=== PATIENT | female | born 1975 | race Caucasian/White ===

== ENCOUNTER 2016-12-16 09:25 | Emergency (ER) | payer MEDICAID ==
[~2016-12-16] VITALS: Ht 154.9 cm; Wt 73.5 kg
[2016-12-16 09:35] VITALS: BP 133/78
--- NOTE | 2016-12-16 09:46 | NUR ---
Patient ambulated to bed 07.
--- NOTE | 2016-12-16 09:50 | NUR ---
PATIENT PRESENTS TO ED WITH C/O LEFT BACK PAIN; LOW MID ABD PAIN; BURNING ON URINATION HX; DENIES RX; DENIES DENIES N/V/D; SKIN IS PINK/WARM/DRY; AAOX4 WITH EVEN AND STEADY GAIT; LUNGS CLEAR BL; HR EVEN AND REGULAR; PT DENIES ANY FEVER, CP, SOB, OR COUGH AT THIS TIME; PATIENT STATES PAIN OF 9/10 AT THIS TIME; VSS; PATIENT POSITIONED FOR COMFORT; HOB ELEVATED; BEDRAILS UP X2; BED DOWN. ER MD MADE AWARE OF PT STATUS.
--- NOTE | 2016-12-16 09:53 | NUR ---
Dr. Saul evaluating patient at bedside.
[2016-12-16] MEDS ORDERED: KETOROLAC 60 MG/2 ML VIAL IM ONE (09:55)
--- NOTE | 2016-12-16 10:15 | NUR ---
41/F c/o left flank pain and lower abdominal pain since last night. Patient is AOX4. Denies N/V/D. VSS.
[2016-12-16 10:35] VITALS: BP 122/66
--- NOTE | 2016-12-16 10:35 | NUR ---
Chart checked and completed. The patient's care was reviewed and supervised by Pam Ocasio RN.
--- NOTE | 2016-12-16 10:35 | NUR ---
Patient discharged with v/s stable. Written and verbal after care instructions given and explained. Patient alert, oriented and verbalized understanding of instructions. Ambulatory with steady gait. All questions addressed prior to discharge. ID band removed. Patient advised to follow up with PMD. Rx of KEFLEX,TRAMADOL given. Patient educated on indication of medication including possible reaction and side effects. Opportunity to ask questions provided and answered.
== END 2016-12-16 10:35 | disposition home or self-care (01) ==
LOC: MED 09:25
DX: N39.0 Urinary tract infection, site not specified (principal); R03.0 Elevated blood-pressure reading, without diagnosis of hypertension
CPT/HCPCS: 81002; 81025; 96372; 99283; J1885

== ENCOUNTER 2018-09-30 05:40 | Emergency (ER) | payer MEDICAID ==
[~2018-09-30] VITALS: Ht 157.5 cm; Wt 72.6 kg
[2018-09-30 05:49] VITALS: BP 109/78
--- NOTE | 2018-09-30 05:50 | NUR ---
TO ED 02 WITH STEADY GAIT
--- NOTE | 2018-09-30 05:55 | NUR ---
PT BIB SELF C/O COUGH X3 DAYS. PT STATES SHE HAS HAD A COUGH FOR 3 DAYS, SHE IS BREAST FEEDING HER 3 MONTH OLD AND DOES NOT WANT TO GET HIM SICK. PT STATES 0/10 PAIN AT THIS TIME. PT STATES TO NOT TAKING MEDICATIONS AT HOME FOR SYMPTOMS. DENIES CP, SOB, CHILLS, FEVER, N/V/D. --HACKING, NON PRODUCTIVE COUGH. LUNG SOUNDS CLEAR BL. BOWEL SOUNDS ACTIVE X4 QUAD. SKIN WARM, DRY AND INTACT. MOIST MUCOUS MEMBRANES. CAP REFIL <3. RADIAL PULSES WNL, BL. CLEAR SPEECH, AAOX4. PMH: DENIES RX: DENIES
--- NOTE | 2018-09-30 06:10 | NUR ---
Patient discharged with v/s stable. Written and verbal after care instructions given and explained. Patient alert, oriented and verbalized understanding of instructions. Ambulatory with steady gait. All questions addressed prior to discharge. ID band removed. Patient advised to follow up with PMD. Rx of Robitussin, and Motrin given. Patient educated on indication of medication including possible reaction and side effects. Opportunity to ask questions provided and answered.
[2018-09-30 06:36] VITALS: BP 110/73
== END 2018-09-30 06:10 | disposition home or self-care (01) ==
LOC: MED 05:40
DX: J06.9 Acute upper respiratory infection, unspecified (principal)
CPT/HCPCS: 99282

== ENCOUNTER 2019-05-14 20:59 | Emergency (ER) | payer MEDICAID ==
[~2019-05-14] VITALS: Ht 152.4 cm; Wt 68.0 kg
[2019-05-14 21:04] VITALS: BP 112/80
[2019-05-14] MEDS ORDERED: NACL 0.9% 1,000 ML IV ONE (21:35)
[2019-05-14 21:59] LABS: BASOPHILS % (AUTO) 0.2 % (0.0-2.0); EOSINOPHILS # (AUTO) 0.2 K/uL (0-0.4); EOSINOPHILS % (AUTO) 1.4 % (0.0-4.0); HEMATOCRIT 43.8 % (36-48); HEMOGLOBIN 14.6 g/dL (12.0-16.0); LYMPHOCYTES # (AUTO) 1.3 K/uL (2.5-16.5); LYMPHOCYTES % (AUTO) 11.1 % (20.5-51.1); MEAN CORPUSCULAR HEMOGLOBIN 28 pg (27-31); MEAN CORPUSCULAR HGB CONC 33 g/dL (33-37); MEAN CORPUSCULAR VOLUME 85.1 fL (80-94); MONOCYTES # (AUTO) 0.5 K/uL (0.8-1.0); MONOCYTES % (AUTO) 4.3 % (1.7-9.3); NEUTROPHILS # (AUTO) 9.6 K/uL (1.8-7.7); PLATELET COUNT (AUTO) 216 K/uL (140-450); RED BLOOD CELL COUNT(AUTO) 5.14 MIL/uL (4.20-5.40); RED CELL DISTRIBUTION WIDTH 12.6 % (11.6-13.7); WHITE BLOOD COUNT (AUTO) 11.6 K/uL (4.8-10.8)
[2019-05-14 22:13] LABS: ALBUMIN 4.5 g/dL (3.4-5.0); ANION GAP 15.8 (8-16); CARBON DIOXIDE 24.8 mmol/L (21-32); CREATININE 0.6 mg/dL (0.6-1.3); POTASSIUM 3.6 mmol/L (3.5-5.1); TOTAL BILIRUBIN 0.3 mg/dL (0.0-1.0)
[2019-05-14 23:00] VITALS: BP 109/59
== END 2019-05-14 23:00 | disposition home or self-care (01) ==
LOC: MED 20:59
DX: A08.4 Viral intestinal infection, unspecified (principal); Z98.890 Other specified postprocedural states
CPT/HCPCS: 36415; 74022; 80053; 85025; 96360; 99284; J7030

== ENCOUNTER 2019-09-11 08:01 | Emergency (ER) | payer MEDICAID ==
[~2019-09-11] VITALS: Ht 157.5 cm; Wt 68.0 kg
[2019-09-11 08:05] VITALS: BP 125/73
--- NOTE | 2019-09-11 08:05 | NUR ---
TO BED # 07 AMBULATORY
--- NOTE | 2019-09-11 08:13 | NUR ---
44/F BIB SELF C/O N/V, HEADACHE, SORETHROAT FOR 3 DAYS. PATIENT STATES PAIN OF 3/10 AT THIS TIME. PATIENT POSITIONED FOR COMFORT; HOB ELEVATED; BEDRAILS UP X1; BED DOWN. ER MD MADE AWARE OF PT STATUS.
[2019-09-11] MEDS ORDERED: KETOROLAC 60 MG/2 ML VIAL IM ONE (08:50)
--- NOTE | 2019-09-11 08:55 | NUR ---
FLU SWAB COLLECTED .
--- NOTE | 2019-09-11 09:06 | NUR ---
Pt report given to MATI GREENFIELD. Transfer of care at this time.
--- NOTE | 2019-09-11 09:34 | NUR ---
REPORTS RECEIVED FROM GIN ATWOOD.
--- NOTE | 2019-09-11 10:15 | NUR ---
Dr. Alvarado is evaluating the patient at bedside.
[2019-09-11 10:43] VITALS: BP 120/71
--- NOTE | 2019-09-11 10:43 | NUR ---
Patient discharged with v/s stable. Written and verbal after care instructions given and explained. Patient alert, oriented and verbalized understanding of instructions. Ambulatory with steady gait. All questions addressed prior to discharge. ID band removed. Patient advised to follow up with PMD. Rx of Motrin and Promethazine Hydrochloride/Dextromethorpan given. Patient educated on indication of medication including possible reaction and side effects. Opportunity to ask questions provided and answered.
== END 2019-09-11 10:43 | disposition home or self-care (01) ==
LOC: MED 08:01
DX: J06.9 Acute upper respiratory infection, unspecified (principal); R03.0 Elevated blood-pressure reading, without diagnosis of hypertension
CPT/HCPCS: 87804; 96372; 99283; J1885

== ENCOUNTER 2020-04-29 11:56 | Emergency (ER) | payer MEDICAID ==
[~2020-04-29] VITALS: Ht 157.5 cm; Wt 69.4 kg
[2020-04-29 12:17] VITALS: BP 133/77
[2020-04-29] MEDS ORDERED: KETOROLAC 30 MG/ML VIAL IM ONE (12:50)
[2020-04-29 13:23] LABS: BASOPHILS % (AUTO) 0.3 % (0.0-2.0); EOSINOPHILS # (AUTO) 0.2 K/uL (0-0.4); EOSINOPHILS % (AUTO) 2.3 % (0.0-4.0); HEMATOCRIT 37.2 % (36-48); HEMOGLOBIN 12.5 g/dL (12.0-16.0); LYMPHOCYTES # (AUTO) 2.1 K/uL (2.5-16.5); LYMPHOCYTES % (AUTO) 31.5 % (20.5-51.1); MEAN CORPUSCULAR HEMOGLOBIN 28 pg (27-31); MEAN CORPUSCULAR HGB CONC 34 g/dL (33-37); MEAN CORPUSCULAR VOLUME 83.7 fL (80-94); MONOCYTES # (AUTO) 0.5 K/uL (0.8-1.0); MONOCYTES % (AUTO) 7.3 % (1.7-9.3); NEUTROPHILS # (AUTO) 3.9 K/uL (1.8-7.7); NEUTROPHILS % (AUTO) 58.6 % (42.2-75.2); PLATELET COUNT (AUTO) 204 K/uL (140-450); RED BLOOD CELL COUNT(AUTO) 4.45 MIL/uL (4.20-5.40); RED CELL DISTRIBUTION WIDTH 13.5 % (11.6-13.7); WHITE BLOOD COUNT (AUTO) 6.6 K/uL (4.8-10.8)
[2020-04-29 13:41] LABS: ALBUMIN 3.9 g/dL (3.4-5.0); ANION GAP 10.6 (8-16); CARBON DIOXIDE 28.2 mmol/L (21-32); CREATININE 0.8 mg/dL (0.6-1.3); POTASSIUM 3.8 mmol/L (3.5-5.1); TOTAL BILIRUBIN 0.2 mg/dL (0.0-1.0)
[2020-04-29 13:50] LABS: APPEARANCE,URINE CLEAR (CLEAR); BILIRUBIN,URINE NEGATIVE (NEGATIVE); BLOOD, URINE TRACE-I (NEGATIVE); COLOR,URINE YELLOW (YELLOW); LEUKOCYTE ESTERASE ,URINE NEGATIVE (NEGATIVE); NITRITE, URINE NEGATIVE (NEGATIVE); UGLUCOSE NEGATIVE (NEGATIVE)
[2020-04-29 14:09] LABS: WBC,URINE 0-5 /HPF (0-5)
[2020-04-29 14:21] VITALS: BP 117/71
== END 2020-04-29 14:21 | disposition home or self-care (01) ==
LOC: MED 11:56
DX: R10.9 Unspecified abdominal pain (principal)
CPT/HCPCS: 36415; 80053; 81001; 81025; 84703; 85025; 96372; 99283; J1885

== ENCOUNTER 2023-02-17 13:51 | Emergency (ER) | payer OTHER ==
[~2023-02-17] VITALS: Ht 157.5 cm; Wt 77.1 kg
[2023-02-17 13:53] VITALS: BP 124/82; PULSE 82; RESP 18; TEMP 98; O2SAT 99
--- NOTE | 2023-02-17 14:16 | NUR ---
PT AMBULATED TO BED 04
[2023-02-17] MEDS ORDERED: FAMOTIDINE 20 MG TAB PO ONE ×2 (14:30→15:10)
[2023-02-17] MEDS ORDERED: DEXAMETHASONE 10 MG/ML VIAL IM ONE (14:30)
[2023-02-17] MEDS ORDERED: diphenhydrAMINE 50 MG CAP PO ONE (14:30)
--- NOTE | 2023-02-17 14:43 | NUR ---
47 Y/O FEMALE BIB SELF, PATIENT PRESENTS TO ED WITH GENERAL BODY RASH. PT STATES SHE HAS NOT HAD ANY NEW FOODS, PETS, OR SOAP EXPOSURES AND DOES NOT RECALL ANY KNOWN ALLERGIES. DENIES N/V/D; AAOX4, TURKISH SPEAKING, AMBULATES WITH EVEN AND STEADY GAIT; LUNGS CLEAR BL; HR EVEN AND REGULAR; PT DENIES ANY FEVER, CP, SOB, OR COUGH AT THIS TIME; PATIENT STATES PAIN OF 0/10 AT THIS TIME; VSS; PATIENT POSITIONED FOR COMFORT; HOB ELEVATED; BEDRAILS UP X2; BED DOWN. ER MD MADE AWARE OF PT STATUS. CALL LIGHT WITHIN REACH. PMH: DENIES NKA
--- NOTE | 2023-02-17 14:58 | NUR ---
REVIEVED REPORT FROM GIN CARNES PT IS A 47 Y/O FEMALE BIB SELF, PATIENT PRESENTS TO ED WITH GENERAL BODY RASH. PT STATES SHE HAS NOT HAD ANY NEW FOODS, PETS, OR SOAP EXPOSURES AND DOES NOT RECALL ANY KNOWN ALLERGIES. DENIES N/V/D; AAOX4, TOGOLESE SPEAKING, AMBULATES WITH EVEN AND STEADY GAIT; LUNGS CLEAR BL; HR EVEN AND REGULAR; PT DENIES ANY FEVER, CP, SOB, OR COUGH AT THIS TIME; PATIENT STATES PAIN OF 0/10 AT THIS TIME; VSS; PATIENT POSITIONED FOR COMFORT; HOB ELEVATED; BEDRAILS UP X2; BED DOWN. ER MD MADE AWARE OF PT STATUS. CALL LIGHT WITHIN REACH. PMH: HYPERLIPIDEMIA NKA
[2023-02-17 15:00] VITALS: BP 124/82; PULSE 82; RESP 18; TEMP 98; O2SAT 99
[2023-02-17] MEDS ORDERED: EPINEPHrine 1 MG/ML AMP IM ONE (15:10)
[2023-02-17] MEDS ORDERED: DIPH25TA53 PO (16:15)
[2023-02-17] MEDS ORDERED: LORA1T1237 PO (16:15)
[2023-02-17] MEDS ORDERED: LIDO15SO4 PO (16:15)
[2023-02-17] MEDS ORDERED: EPIN1KIT31 IM (16:15)
--- NOTE | 2023-02-17 16:55 | NUR ---
Patient discharged with v/s stable. Written and verbal after care instructions given and explained. Patient verbalized understanding. Ambulatory with to car. All questions addressed prior to discharge. Advised to follow up with PMD.
[2023-02-18] MEDS ORDERED: FAMO-90 PO (05:50)
[2023-02-18] MEDS ORDERED: DIPH25TA53 PO (05:50)
[2023-02-18] MEDS ORDERED: PRED20TA5 PO (05:50)
[2023-02-18] MEDS ORDERED: EPIN1KIT31 IM (14:09)
== END 2023-02-17 16:55 | disposition home or self-care (01) ==
LOC: MED 13:51
DX: T78.49XA Other allergy, initial encounter (principal); E78.5 Hyperlipidemia, unspecified; Z79.899 Other long term (current) drug therapy; X58.XXXA Exposure to other specified factors, initial encounter
CPT/HCPCS: 81025; 96372; 99291; J0171; J1100; Q0163; 99284

== ENCOUNTER 2023-02-18 04:15 | Emergency (ER) | payer OTHER ==
[~2023-02-18] VITALS: Ht 157.5 cm; Wt 76.2 kg
[~2023-02-18 04:15] MED LIST: DIPH25TA53 PO; EPIN1KIT31 IM; LIDO15SO4 PO; LORA1T1237 PO
[2023-02-18 04:27] VITALS: BP 99/54; PULSE 94; RESP 18; TEMP 97; O2SAT 98
[2023-02-18] MEDS ORDERED: diphenhydrAMINE 50 MG/ML VIAL IVP ONE (04:35)
[2023-02-18] MEDS ORDERED: methylPREDNISolone SS 125 MG in WATER STERILE 2 ML IV ONE (04:35)
[2023-02-18] MEDS ORDERED: FAMOTIDINE 20 MG/2 ML VIAL IVP ONE (04:35)
[2023-02-18] MEDS ORDERED: FAMO-90 PO (05:50)
[2023-02-18] MEDS ORDERED: DIPH25TA53 PO (05:50)
[2023-02-18] MEDS ORDERED: PRED20TA5 PO (05:50)
[2023-02-18 06:20] VITALS: BP 99/54; PULSE 94; RESP 18; TEMP 97; O2SAT 98
--- NOTE | 2023-02-18 06:20 | NUR ---
Patient discharged with v/s stable. Written and verbal after care instructions given and explained. Patient alert, oriented and verbalized understanding of instructions. Ambulatory with steady gait. All questions addressed prior to discharge. ID band removed. Patient advised to follow up with PMD. Rx of BENADRYL, PEPCID, DELTASONE given. Patient educated on indication of medication including possible reaction and side effects. Opportunity to ask questions provided and answered.
[2023-02-18] MEDS ORDERED: EPIN1KIT31 IM (14:09)
== END 2023-02-18 06:20 | disposition home or self-care (01) ==
LOC: MED 04:15
DX: T78.49XA Other allergy, initial encounter (principal); L50.9 Urticaria, unspecified; Z79.899 Other long term (current) drug therapy; X58.XXXA Exposure to other specified factors, initial encounter
CPT/HCPCS: 96374; 96375; 99284; J1200; J3490

== ENCOUNTER 2023-02-18 10:53 | Emergency (ER) | payer OTHER ==
[~2023-02-18] VITALS: Ht 172.7 cm; Wt 85.7 kg
[~2023-02-18 10:53] MED LIST changes: +FAMO-90 PO; +PRED20TA5 PO
[2023-02-18 10:59] VITALS: BP 150/81; PULSE 93; RESP 19; TEMP 97.7; O2SAT 99
[2023-02-18] MEDS ORDERED: diphenhydrAMINE 50 MG/ML VIAL IVP ONE (11:25)
[2023-02-18] MEDS ORDERED: FAMOTIDINE 20 MG/2 ML VIAL IVP ONE (11:25)
[2023-02-18] MEDS ORDERED: methylPREDNISolone SS 125 MG in WATER STERILE 2 ML IV ONE (11:25)
[2023-02-18] MEDS ORDERED: NACL 0.9% 1,000 ML IV ONE (11:25)
[2023-02-18] MEDS ORDERED: methylPREDNISolone SS 125 MG/2 ML VIAL IVP ONE (11:30)
[2023-02-18] MEDS ORDERED: EPIN1KIT31 IM (14:09)
[2023-02-18 14:26] VITALS: BP 124/64; PULSE 71; RESP 17; O2SAT 98
--- NOTE | 2023-02-18 14:27 | NUR ---
Patient discharged with v/s stable. Written and verbal after care instructions given and explained. Patient alert, oriented and verbalized understanding of instructions. Ambulatory with steady gait. All questions addressed prior to discharge. ID band removed. Patient advised to follow up with PMD. Rx of EPI PEN given. Patient educated on indication of medication including possible reaction and side effects. Opportunity to ask questions provided and answered.
== END 2023-02-18 14:27 | disposition home or self-care (01) ==
LOC: MED 10:53
DX: L50.9 Urticaria, unspecified (principal); R21 Rash and other nonspecific skin eruption; E78.5 Hyperlipidemia, unspecified; Z79.899 Other long term (current) drug therapy
CPT/HCPCS: 96361; 96374; 96375; 99284; J1200; J2930; J3490; J7030

== ENCOUNTER 2023-03-06 08:58 | Emergency (ER) | payer OTHER ==
[~2023-03-06] VITALS: Ht 157.5 cm; Wt 74.4 kg
[2023-03-06 09:27] VITALS: BP 135/79; PULSE 80; RESP 18; TEMP 97.5; O2SAT 96
== END 2023-03-06 11:30 | disposition left against medical advice (07) ==
LOC: MED 08:58
DX: R05.9 Cough, unspecified (principal); J02.9 Acute pharyngitis, unspecified; R51.9 Headache, unspecified; Z53.21 Procedure and treatment not carried out due to patient leaving prior to being seen by health care provider
CPT/HCPCS: 99281